=== PATIENT | female | born 1940 | race Caucasian/White ===

== ENCOUNTER → 2018-04-10 | Outpatient (CLI) | payer MEDICARE | END | disposition home or self-care (01) | LOC: US 08:34 | DX: R10.11 Right upper quadrant pain (principal) | CPT/HCPCS: 76705 ==

== ENCOUNTER → 2018-05-08 | Outpatient (CLI) | payer MEDICARE ==
[2018-05-08] MEDS: GADOBUTROL 10 MMOL/10 ML VIAL IV (13:28)
== END | disposition home or self-care (01) ==
LOC: KCIC MRI 12:08
DX: K76.89 Other specified diseases of liver (principal); Z79.01 Long term (current) use of anticoagulants
CPT/HCPCS: 74183; A9585

== ENCOUNTER → 2018-08-17 | Outpatient (CLI) | payer MEDICARE ==
[~2018-08-17] MED LIST: ASPI-630 PO; BARIUM SULFATE 60% 355 ML SUSP PO ONE; LEVO25TA55 PO
--- NOTE | 2018-08-17 13:24 | KCIC ---
SMALL BOWEL SERIES History: History of small bowel obstruction, right-sided abdominal pain for 4 months Comparison: None. Findings: Small bowel examination was performed. 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 There has been cholecystectomy. There is no evidence of bowel obstruction. Is normal transit of the small bowel, seen in the colon at about 60 minutes. The no significant abnormality was identified of the terminal ileum. The no definitive stricture was identified. There is retained stool in the right colon. Appendix is not confidently identified. Fluoroscopy time: 1 minute 47 seconds, 3 images Impression: 1. There is no evidence of small bowel obstruction. Appendix could not be visualized on this exam. Electronically signed by: Jass Iniguez MD (08/17/2018 1:20 PM) [email or web address]
== END | disposition home or self-care (01) ==
LOC: KCIC 08:29
PROVIDERS: ATTEND Internal Medicine Gastroenterology
DX: R10.84 Generalized abdominal pain (principal); Z88.0 Allergy status to penicillin
CPT/HCPCS: 74250

== ENCOUNTER → 2019-02-27 | Outpatient (CLI) | payer MEDICARE ==
[~2019-02-27] MED LIST changes: -BARIUM SULFATE 60% 355 ML SUSP PO ONE; +GADOBUTROL 7.5 MMOL/7.5 ML VIAL IV ONE
--- NOTE | 2019-02-27 16:11 | KCIC ---
MRI Brain with and without contrast History: Dizziness, 6th nerve palsy, new onset dizziness in recent weeks Technique: Multiplanar, multi sequential pre and postcontrast MR imaging was performed of the brain and orbits. Comparison: None Findings: There is no evidence of recent infarct or cytotoxic edema. The ventricles, sulci, and cisterns are within normal limits in size and configuration. There is no significant midline shift, intraaxial mass effect, or focal abnormal extra-axial fluid collection. There are a few small foci of T2 and FLAIR hyperintense signal of the supratentorial parenchyma greatest of the left frontal white matter. There is no nodular parenchymal or leptomeningeal enhancement. There is preservation of the major intracranial flow-voids at the skull base, more ectatic appearing left cavernous internal carotid artery comparing with the right. The cerebellar tonsils are normal in location. There is no significant abnormality of the pineal gland or pituitary gland. There is patchy mild bilateral ethmoid air cell mucosal thickening. There are ruma bullosa greater on the left. The mastoid air cells are aerated. There is nonspecific heterogeneity of the marrow of the nonexpanded clivus. No orbital mass is identified. Extraocular muscles are symmetric in appearance. There is no abnormal enhancement identified of the optic nerves. No asymmetric enhancement is identified of Meckel's caves or cavernous sinus on either side. Impression: 1. There is no abnormal intracranial enhancement or evidence of recent infarct. Minimal T2 and FLAIR hyperintense signal abnormality of the supratentorial parenchyma greatest of the left frontal lobe is nonspecific, more commonly due to chronic microvascular ischemic disease in a patient this age. 2. Suboptimally evaluated, there is likely ectatic left cavernous internal carotid artery. Electronically signed by: Jass Iniguez MD (02/27/2019 4:08 PM) [facility]-[email or web address]
== END | disposition home or self-care (01) ==
LOC: KCIC MRI 02-23 10:39
PROVIDERS: ATTEND Ophthalmology
DX: H49.22 Sixth [abducent] nerve palsy, left eye (principal); R42 Dizziness and giddiness
CPT/HCPCS: 70553; A9585

== ENCOUNTER → 2019-05-23 | Outpatient (CLI) | payer MEDICARE ==
[~2019-05-23] MED LIST changes: -GADOBUTROL 7.5 MMOL/7.5 ML VIAL IV ONE
--- NOTE | 2019-05-23 16:38 | KCIC ---
Limited abdomen ultrasound study of the right upper quadrant Clinical indications: Follow-up of liver nodule COMPARISON: April 10, 2018. FINDINGS: The gallbladder is surgically absent. The extra hepatic bile duct measures 2.2 mm in caliber which is normal. The liver measures 15.2 cm in length which is normal. There is a solid echogenic nodule of the posterior aspect of the liver adjacent to the IVC which measures 13 mm transversely and 14 mm longitudinally and 20 mm in AP dimension. Measurements on the previous study were 15 mm transversely and 14 mm longitudinally and 17 mm in AP dimension. Therefore, there has been no significant increase in size. No internal color Doppler flow is seen. This is consistent with a hemangioma of the liver. The length of the right kidney is 10.4 cm. no hydronephrosis or renal mass or perinephric fluid collection is seen on this side. The pancreas is homogeneous without focal enlargement. IMPRESSION: No significant change in size of hemangioma of the right lobe of the liver. Electronically signed by: Matthias Daly MD (05/23/2019 4:35 PM) [id number]
== END | disposition home or self-care (01) ==
LOC: KCIC US 08:34
PROVIDERS: ATTEND Family Medicine
DX: K76.89 Other specified diseases of liver (principal); D18.00 Hemangioma unspecified site
CPT/HCPCS: 76705

== ENCOUNTER → 2019-06-22 | Outpatient (CLI) | payer MEDICARE ==
--- NOTE | 2019-06-22 15:14 | KCIC ---
ANGIOGRAPHY BRAIN WO CONTRAST DATE: 06/22/2019 11:00 AM INDICATION: Diplopia. Abnormal MRI brain TECHNIQUE: Axial 3-D [id number] images of the intracranial vessels without contrast. 3D reformatted images were performed on a separate workstation and reviewed. Axial DWI and FLAIR imaging was also obtained. COMPARISON: MRI brain 02/27/2019. FINDINGS: Anterior Circulation: Mild fusiform enlargement of the left ICA cavernous segment measuring 6 mm in greatest diameter. The visualized distal internal carotid arteries are otherwise patent with no stenosis or aneurysm. The visualized anterior cerebral and middle cerebral arteries show no significant stenosis or aneurysm. Fenestrated anterior communicating artery. Posterior Circulation: The visualized vertebral arteries, basilar artery, and posterior cerebral arteries show no significant stenosis or aneurysm. No arterial venous malformation is seen. No acute infarct or hydrocephalus. MRA is not sensitive for aneurysms 4mm or less in size, for small arteriovenous malformations, or for the detection of dural fistulae. IMPRESSION: No intracranial stenosis, aneurysm or arteriovenous malformation. Mildly ectatic left ICA cavernous segment of doubtful clinical significance. Electronically signed by: Jass Max MD (06/22/2019 3:11 PM) [email or web address]
== END | disposition home or self-care (01) ==
LOC: KCIC MRI 10:30
PROVIDERS: ATTEND Neurological Surgery
DX: H53.2 Diplopia (principal); I77.89 Other specified disorders of arteries and arterioles
CPT/HCPCS: 70544

== ENCOUNTER → 2020-09-11 | Outpatient (CLI) | payer MEDICARE ==
--- NOTE | 2020-09-11 16:32 | KCIC ---
PROCEDURE: KNEE LEFT 3V STUDY DATE: 09/11/2020 CLINICAL INDICATION / HISTORY: Reason: GENERALIZED LT KNEE PAIN XS 3 WEEKS, TWISTED KNEE WHILE GOING DOWN STAIRS / Spl. Instructions: / History: . TECHNIQUE: AP, lateral, and tunnel views of the left knee. COMPARISON: None FINDINGS: Subtle undulant contour to the anterior surface of the medial femoral condyle on the lateral view is present and could represent a subtle impaction fracture. Otherwise the osseous structures are intact. The articular surfaces are otherwise smooth. The joint space is maintained. No intra-articular loose bodies. The alignment is within normal limits. Soft tissues show evidence of a small joint effusion. Otherwise, soft tissues are unremarkable. No radio-opaque foreign bodies are identified. IMPRESSION: Possible impaction fracture of the medial femoral condyle anteriorly with associated reactive joint effusion. Otherwise negative left knee x-rays. If indicated, further imaging evaluation with MRI could be considered. Electronically signed by: Elyssa Jolly MD (09/11/2020 4:29 PM) [id number]
== END ==
LOC: KCIC 15:37
PROVIDERS: ATTEND Family Medicine
DX: M25.462 Effusion, left knee (principal)
CPT/HCPCS: 73562

== ENCOUNTER → 2021-03-16 | Outpatient (CLI) | payer MEDICARE ==
--- NOTE | 2021-03-16 11:56 | KCIC ---
EXAM: Cervical spine, 3 views. HISTORY: Pain. COMPARISON: None. FINDINGS: 3 views of the cervical spine are obtained. There is slight reversal cervical lordosis. The re is degenerative endplate remodeling with disc space narrowing and osteophytosis primarily at C5-C6 , and to a lesser extent, C6-C7. There is multilevel facet arthropathy. There is calcification of the thyroid cartilage. IMPRESSION: 1. Degenerative change predominantly at C5-C6. 2. No acute osseous finding. Electronically signed by: Ruby Loza MD (03/16/2021 11:54 AM) [id number]
== END ==
LOC: KCIC 11:20
PROVIDERS: ATTEND Family Medicine
DX: M47.812 Spondylosis without myelopathy or radiculopathy, cervical region (principal)
CPT/HCPCS: 72040

== ENCOUNTER → 2021-04-23 | Outpatient (CLI) | payer MEDICARE ==
[~2021-04-23] MED LIST changes: +HYDR25CA75 PO; +IOHEXOL 300 MG/ML 100ML VIAL. IV ONE
--- NOTE | 2021-04-23 14:36 | KCIC ---
MRI of the brain without contrast 04/23/2021 Clinical History: Double vision involving the left eye.. 6th nerve palsy. Technique: Unenhanced T1-weighted sagittal and axial, T2-weighted axial and coronal and FLAIR, suscep tibility weighted and diffusion-weighted axial images of the brain were obtained. Findings: Comparison study is dated 02/27/2019. There is generalized parenchymal atrophy. Patchy and several small scattered areas of increased signa l intensity are seen within the periventricular and subcortical white matter of both cerebral hemisph eres on the FLAIR and T2-weighted images consistent with areas of very mild small vessel ischemic dis ease. No acute parenchymal abnormality is seen. No extra-axial fluid collection is noted. There is no MRI evidence of acute ischemia/infarction. The cavernous portion of the left internal carotid artery is noted to be ectatic and tortuous. This c ould impinge upon the left 6th cranial nerve within the left cavernous sinus. This finding is unchang ed. The orbits are within normal limits. Mild mucosal thickening is seen scattered throughout the paranasal sinuses. IMPRESSION: The cavernous portion of the left internal carotid artery is ectatic and tortuous. This c ould impinge upon the left 6th cranial nerve within the left cavernous sinus. This finding is unchang ed. No acute parenchymal abnormality is seen. Electronically signed by: Zi Do MD (04/23/2021 2:34 PM) [id number]
--- NOTE | 2021-04-23 16:32 | KCIC ---
EXAM: CTA HEAD DATE: 04/23/2021 1:22 PM INDICATION: 6th nerve palsy, previous abnormal MRI brain TECHNIQUE: 5 mm axial tomographic images were obtained through the head before contrast. CTA angiogra m was obtained after IV bolus administration of 100 cc of Omnipaque 300. Multiplanar reconstruction images to include MIP and 3-D reconstruction images are submitted. One or more of the following dos e reduction techniques were utilized: Automated exposure control (AEC), Adjustment of mA and/or kV ac cording to patient size, Use of iterative reconstruction technique such as ASiR, CT scan done accordi ng to ALARA and image gently/image wisely COMPARISON: MRA 06/22/2019. FINDINGS: Noncontrast CT: The brain parenchyma is normal in attenuation. No intra- or extra-axial mass or fluid collection. No hyperdense intracranial hemorrhage. The ventricles are normal in size and configuration without midli ne shift. There is normal ngo-white matter differentiation. The subarachnoid cisterns are patent. The visualized paranasal sinuses are well aerated. The mastoid air cells are clear. The visualized po rtions of the orbits are normal. No aggressive osseous lesion or fracture. CTA Head: Tortuous ectatic left ICA cavernous segment measuring up to 6 mm in diameter, unchanged fro m the prior. The visualized distal internal carotid arteries, anterior and middle cerebral arteries a re otherwise patent. The distal vertebral arteries, basilar artery, and posterior cerebral arteries a re patent and normal caliber. No aneurysm or arteriovenous malformation is seen. IMPRESSION: Unchanged tortuous ectatic left ICA cavernous segment. It is possible that this impinges on the left 6th cranial nerve in the cavernous sinus. Electronically signed by: Jass Max MD (04/23/2021 4:29 PM) [id number]
== END ==
LOC: KCIC MRI 12:28
PROVIDERS: ATTEND Nurse Practitioner Family
DX: H49.22 Sixth [abducent] nerve palsy, left eye (principal); R93.0 Abnormal findings on diagnostic imaging of skull and head, not elsewhere classified; I77.1 Stricture of artery
CPT/HCPCS: 70496; 70551; 82565; Q9967

== ENCOUNTER → 2021-08-19 | Outpatient (CLI) | payer MEDICARE ==
[~2021-08-19] MED LIST changes: +ACET325T9 PO; +ASCO500C PO; +CAL MAG D; +CALC-450 PO; +GARL400T2 PO; +GLUC-142 PO; -IOHEXOL 300 MG/ML 100ML VIAL. IV ONE; +MULT-245 PO; +NAPR-695 PO; +OMEG1CAP27 PO; +VIT1TABL32 PO; +VITA1TAB19 PO
--- NOTE | 2021-08-19 11:01 | PDOC1 ---
INITIAL PAIN CONSULT DATE OF SERVICE: DOS: DATE: 08/19/21 TIME: 10:53 CHIEF COMPLAINT: Chief Complaint: Neck and bilateral upper extremity pain HISTORY OF PRESENT ILLNESS: 81-year-old female presents with ear pain neck bilateral shoulders upper extremities left greater than right since February 2021 without any specific injury or accident that she is aware but woke up 1 day and the pain was there in the base the neck and shoulders radiated to the upper extremities, worse over the past several months radiating into the anterior deltoid biceps into the forearms as well as into the posterior triceps region patient reports is worse with repetitive motions lifting weightbearing reaching above her head with her hands and has been disturbing sleep about 3-4 times a night patient reports it gene rally does not affect her bowel or bladder control does not affect her ability to walk significantly but it is difficult at times when she is maneuvering and feels she is off balance when the pain is at its worst in the neck and shoulder as well as the upper extremities patient describes pain as sharp and stabbing throbbing shooting radiating the upper extremities again worse on the left than the right but present bilaterally change during the day with activity more repetitive motions or weightbearing makes it worse is aching burning and primarily noticeable towards the end of the day or in the evening and again disturbing her sleep. Patient did have an MRI scan of the cervical spine showing central spinal stenosis and at C5-6 severe degenerative foraminal stenosis at C6-7 and at least moderate bilateral foraminal stenosis at C5-6. Patient rates her disability rating 0-10 10 me the worst is a 9 with family home responsibilities social activity occupation self-care life support activities specially sleeping in a 10 with recreational activities. Patient has been taking naproxen over the past few days which helps the pain by about 50% patient has had physical therapy still doing the strengthening and stretching exercises with this also chiropractic treatment which is ongoing which she feels both have been helpful but not to the level she would like. However the naproxen is decreasing the pain better than anything she has tried so far. PAST MEDICAL HISTORY: PMH: Hypertension, arthritis, cigarette smoking quit many years ago PREVIOUS SURGERIES: Past Surgical Hx: Cholecystectomy, tonsillectomy CURRENT MEDICATIONS: Current Meds: Active Scripts Medications Dose Route/Sig Max Daily Dose Days Date Category Dose Instructions Garlic X (Garlic) 400 Mg Tablet 400 Mg PO DAILY 08/19/21 Reported Osteo Bi-Flex Tablet (Glucosamine/D3/Boswellia Ruthann) 1 Each Tablet 2 Each PO DAILY 08/19/21 Reported Fish Oil 1,000 Mg Softgel (Morven-3 Fatty Acids/Fish Oil) 1 Each Capsule 2 Cap PO TID 30 08/19/21 Reported WITH MEALS B Complex (Vitamin B Complex) 1 Each Tablet 1 Tab PO DAILY 30 08/19/21 Reported Vitamin C (Ascorbic Acid) 500 Mg Capsule.er 1 Cap PO DAILY 30 08/19/21 Reported Caltrate 600 + D Soft Chew Tab (Calcium Carbonate/Vitamin D3) 1 Each Tab.chew 1 Each PO DAILY 08/19/21 Reported Ocuvite Tablet (Vit A,C & E/Lutein/Minerals) 1 Each Tablet 1 Tab PO DAILY 30 08/19/21 Reported Multi Vitamin Daily (Multivitamin) 1 Each Tablet 1 Tab PO DAILY 30 08/19/21 Reported [martha-mag-d] 1 Tsp 08/19/21 Reported Tylenol (Acetaminophen) 325 Mg Tablet 1 Tab PO PRN Q4HRS PRN 08/19/21 Reported Naproxen 375 Mg Tablet 1 Tab PO BID 30 08/19/21 Reported with food Hydroxyzine Pamoate 25 Mg Capsule 1 Cap PO BID 04/23/21 Reported Aspirin 81 Mg Tab.chew Unknown Dose PO 05/08/18 Reported Synthroid (Levothyroxine Sodium) 25 Mcg Tablet Unknown Dose PO DAILYAC 05/08/18 Reported ALLERGIES; Allergies: Coded Allergies: Penicillins (Verified Allergy, Intermediate, 05/08/18) FAMILY HISTORY: Family Hx: Arthritis in patient's sister SOCIAL HISTORY: Social Hx: Patient is under alcohol does not smoke she quit many years ago, does not use any illegal illicit recreational drugs is single lives locally in [facility] REVIEW OF SYSTEMS: ROS: Positive for those items mentioned in history of present illness, all systems are reviewed, otherwise negative ,and are complete full and well-documented on patient's chart. PHYSICAL EXAM: VS: Blood pressure is 156/75 pulse 71 respirations 18 temperature 98.1 F height 5 feet 6 inches weight is 148 pounds PE: PHYSICAL EXAMINATION: GENERAL: The patient is awake, alert, oriented, appropriate, very pleasant in demeanor. HEENT: Shows normocephalic, atraumatic. Extraocular movements are intact and symmetrical. Oral cavity: Mucous membranes moist and pink. Dentition is intact. NECK: Shows anterior throat supple without palpable lymphadenopathy noted. Swallow reflex symmetrical. CHEST: Shows normal on inspection. Breath sounds are clear bilaterally, no rales rhonchi or wheeze auscultated. HEART: Shows S1, S2 clear. No murmurs auscultated. ABDOMEN: Soft, nontender, nondistended. No palpable organomegaly is noted. No rebound or guarding demonstrated. BACK: Shows spine grossly in the midline. Normal-appearing cervical lordotic curvature. Cervical paraspinous muscles show symmetrical with inspection, on palpation some mild tenderness diffusely throughout the upper middle lobe decrease the paraspinous musculature somewhat more on the left than the right but present bilaterally also some tenderness in the superior medial trapezius more on the left than the right as well but without trigger points without radiation. Patient has full rotation motion cervical spine both laterally as well as full extension full forward flexion without significant increase in pain. There is slightly increased thoracic kyphosis, some minor flattening of the lumbar lordotic curvature. EXTREMITIES: Upper extremities show deep tendon reflexes 2+ in the biceps and triceps tendons. Motor exam is 5 on a scale of 5 with right polarity tester, biceps and triceps flexion and 4/5 on the left. Peripheral pulses are 1+ radial. No peripheral edema is noted bilaterally. Upper extremities are warm and dry to touch, equal in color and appearance. Shoulder shrug is strong and intact without loss of strength on resistance as is abduction of the shoulder at 90 degrees without loss of strength on resistance bilaterally. SKIN: Shows warm and dry, good turgor. No edema. No sores, rashes or bruising throughout. IMPRESSION: Impression: 81-year-old female with proximate 5-month history pain base the neck and bilateral upper extremities left greater than right in a radicular fashion. MRI scan cervical spine as noted Hypertension Arthritis Plan: Options were discussed with the patient including conservative medical management continued physical therapies interventional techniques. Patient would like to pursue most conservative course at this time we will continue with physical therapy is also naproxen has been helping significantly and she will continue with this as well. If symptoms are not improved long-term and or con ditions worsen patient will return as we did discuss potential cervical epidural steroid injection using descriptions as well as anatomical models, in the future. ALBERTO ARRIOLA MD Aug 19, 2021 11:01
== END | disposition home or self-care (01) ==
LOC: PNCL 09:04
PROVIDERS: ATTEND Anesthesiology
DX: M54.2 Cervicalgia (principal); M79.602 Pain in left arm; M79.601 Pain in right arm; I10 Essential (primary) hypertension; M19.90 Unspecified osteoarthritis, unspecified site; Z87.891 Personal history of nicotine dependence; Z90.49 Acquired absence of other specified parts of digestive tract; Z98.890 Other specified postprocedural states; Z79.82 Long term (current) use of aspirin; Z79.899 Other long term (current) drug therapy; Z88.0 Allergy status to penicillin
CPT/HCPCS: G0463

== ENCOUNTER → 2021-10-20 | Outpatient (CLI) | payer MEDICARE ==
[~2021-10-20] MED LIST changes: +HYDR12.575 PO; +MECL12.582 PO; +ONDA4TAB12 PO
--- NOTE | 2021-10-20 15:20 | PDOC ---
Progress Note - Pain Clinic Date of Service: DOS: DATE: 10/20/21 TIME: 15:17 Diagnosis: Dx: Cervical radiculopathy with cervical degenerative disease and cervical spinal stenosis History or Present Illness: HPI: 81-year-old female returns in follow-up status post initial evaluation August 19 and patient had requested doing massage and physical therapy however has not had the physical therapy done she is just been doing stretching on her own and has had a massage or 2 which was helpful but only temporarily patient reports still significant pain in the base the neck and shoulders radiating the upper extremities left slightly worse than right but present bilaterally. Patient reports he is having complaint of double vision over the past several weeks and is uncertain what the cause of this is she is still waiting to see her engine room helper. Patient reports the therapy exercises she has been doing at home have been helpful but not decreasing the pain significantly patient reports again some headaches that come and go and base the neck pain and shoulders rating to the upper extremities again worse on the left than the right and into the upper back described as aching and tingling but on and off in intensity patient reports is generally better with sitting or laying down does not awaken her from sleep most nights no motor deficits in the upper extremities as well but some fatigability especially on the left arm with repetitive motions and reaching and weightbearing activities. Physical Exam: VS: Blood pressure is 118/71 pulse 66 respirations are 18 temperature is 98.7 F weight is 140 pounds PE: PHYSICAL EXAMINATION: GENERAL: The patient is awake, alert, oriented, appropriate, very pleasant in demeanor HEENT: Shows normocephalic, atraumatic. Extraocular movements are intact and symmetrical, no nystagmus pupils are equal round and reactive to light and accommodation. Oral cavity: Mucous membranes moist and pink. Dentition is intact. NECK: Shows anterior throat supple without palpable lymphadenopathy noted. Swallow reflex symmetrical. CHEST: Shows normal on inspection. Breath sounds are clear bilaterally, no rales or rhonchi. HEART: Shows S1, S2 clear. No murmurs auscultated. ABDOMEN: Soft, nontender, nondistended. No palpable organomegaly is noted. BACK: Shows spine grossly in the midline. Normal-appearing cervical lordotic curvature. There is slightly increased thoracic kyphosis, some minor flattening of the lumbar lordotic curvature. EXTREMITIES: Upper extremities show deep tendon reflexes 2+ in the patellar and tendo calcaneus tendons. Motor exam is 5 on a scale of 5 with right dorsifle xion, extension, quadriceps and hamstring flexion and 4/5 on the left. Peripheral pulses are [] posterior tibial. [] peripheral edema is noted bilaterally. Upper extremities are warm and dry to touch, equal in color and appearance. SKIN: Shows warm and dry, good turgor. No edema. No sores, rashes or bruising throughout. Procedure: Procedure: Options were discussed with the patient. Patient chart reviewed with her current medication regimen updated current review of systems updated today as well. We will order formal physical therapy with traction for the patient as well as stretching strength exercises and deep tissue massage therapy. If not significantly improved patient will return to the clinic and we did discuss potential interventional techniques at that time. Patient to follow-up with her engine room helper as well regarding recent double vision. Medication Injected: Med Injected: None Condition at Discharge: Condition at Discharge: Condition at discharge is stable ALBERTO ARRIOLA MD Oct 20, 2021 15:20
== END | disposition home or self-care (01) ==
LOC: PNCL 14:31
PROVIDERS: ATTEND Anesthesiology
DX: M50.10 Cervical disc disorder with radiculopathy, unspecified cervical region (principal); M48.02 Spinal stenosis, cervical region; Z79.899 Other long term (current) drug therapy; Z88.0 Allergy status to penicillin
CPT/HCPCS: 99212; G0463

== ENCOUNTER 2021-10-22 12:02 | Emergency (ER) | payer MEDICARE ==
[~2021-10-22] VITALS: Ht 167.6 cm; Wt 62.5 kg
[~2021-10-22 12:02] MED LIST changes: -MECL12.582 PO; -ONDA4TAB12 PO
[2021-10-22] MEDS ORDERED: IV NORMAL SALINE 1000ML BAG 1,000 ML IV ONE ×2 (12:30→14:15)
[2021-10-22] MEDS ORDERED: ONDANSETRON PF 4 MG/2 ML VIAL. IVP ONE (12:30)
[2021-10-22] MEDS ORDERED: ONDANSETRON PF 4 MG/2 ML VIAL. ONE (12:34)
[2021-10-22] MEDS ORDERED: LABETALOL 20 MG/4 ML DISP.SYRIN. IVP ONE (12:45)
[2021-10-22 12:49] LABS: BASO % 0 % (0-3); EOS % 0 % (0-3); HEMATOCRIT 39.6 % (36.0-47.0); LYMPH # 0.8 x10^3/uL (1.0-4.8); LYMPH % 9 % (24-48); MEAN CORPUSCULAR HEMOGLOBIN 27 pg (25-35); MEAN CORPUSCULAR HGB CONC 33 g/dL (31-37); MEAN CORPUSCULAR VOLUME 83 fL (79-100); MONO # 0.4 x10^3/uL (0.0-1.1); MONO % 4 % (0-9); NEUT # 8.3 x10^3/uL (1.8-7.7); NEUT % 87 % (31-73); PLATELET COUNT 374 x10^3/uL (140-400); RED BLOOD COUNT 4.75 x10^6/uL (3.50-5.40); RED CELL DISTRIBUTION WIDTH 13.4 % (11.5-14.5); WHITE BLOOD COUNT 9.5 x10^3/uL (4.0-11.0)
[2021-10-22 12:57] LABS: CALCIUM 9.3 mg/dL (8.5-10.1); CREATININE 0.9 mg/dL (0.6-1.0); GFR 60.4; POTASSIUM 3.9 mmol/L (3.5-5.1)
[2021-10-22] MEDS ORDERED: METOCLOPRAMIDE HCL 10 MG/2 ML VIAL. IVP ONE (13:00)
[2021-10-22 13:04] LABS: ALBUMIN 3.6 g/dL (3.4-5.0); ALBUMIN/GLOBULIN RATIO 0.8 (1.0-1.7); MAGNESIUM 1.9 mg/dL (1.8-2.4); PROTHROMBIN TIME PATIENT 13.4 SEC (11.7-14.0); TOTAL BILIRUBIN 0.4 mg/dL (0.2-1.0); TOTAL PROTEIN 8.3 g/dL (6.4-8.2)
--- NOTE | 2021-10-22 13:06 | RAD ---
PQRS Compliance Statement: One or more of the following individualized dose reduction techniques were utilized for this examinat ion: 1. Automated exposure control 2. Adjustment of the mA and/or kV according to patient size 3. Use of iterative reconstruction technique CT head without contrast 10/22/2021 12:45 PM INDICATION: Dizziness, double vision COMPARISON: MRI brain 04/23/2021 TECHNIQUE: Multiple axial CT images of the head were obtained from skull base through the vertex with out intravenous contrast. FINDINGS: Head: Ventricles, sulci and basal cisterns are within normal limits. There is no hydrocephalus. Taveras-white matter differentiation is normal. There is no acute intracranial hemorrhage. There is no mass, mass e ffect or midline shift. Posterior fossa is normal in appearance. Visualized portions of the orbits are normal. Paranasal sinuses are well aerated. Mastoid air cells a re well aerated. Scalp and calvaria are normal. IMPRESSION: No acute intracranial hemorrhage. Electronically signed by: Indigo Fernandez MD (10/22/2021 1:04 PM) [id number]
--- NOTE | 2021-10-22 13:16 | PHYS DOC ---
Past Medical History Past Medical History: Hypertension, Hypothyroid Additional Past Medical Histor: pinched nerve in neck Past Surgical History: Cholecystectomy, Tonsillectomy Smoking Status: Never Smoker Alcohol Use: None General Adult EDM: Chief Complaint: MULTIPLE COMPLAINTS HPI: HPI: Patient is a 81 year old female with history of hypertension, hypothyroidism, pinched nerve to the neck, who presents to the ED today complaining of nausea and vomiting, dizziness, unsteady gait, sensation of spinning, sweating, symptoms have been going on since 7:30 in the morning. Patient is also compla ining of double vision which has been going on since Tuesday though she states this double vision is has been going on since January, she states she has been seen by a neurologist. She states they did an MRI of her brain a couple months ago which was negative for any acute findings. Denies any headache. Denies any chest pain or shortness of breath. Review of Systems: Review of Systems: Constitutional: Denies fever or chills. [] Eyes: Denies change in visual acuity. [] HENT: Denies nasal congestion or sore throat. [] Respiratory: Denies cough or shortness of breath. [] Cardiovascular: Denies chest pain or edema. [] GI: Reports nausea and vomiting. Denies abdominal pain, bloody stools or diarrhea. [] : Denies dysuria. [] Musculoskeletal: Denies back pain or joint pain. [] Integument: Denies rash. [] Neurologic: Reports sensation of spinning, dizziness, denies headache, focal weakness or sensory changes. [] [] Psychiatric: Denies depression or anxiety. [] Heart Score: C/O Chest Pain: N/A Risk Factors: Risk Factors: DM, Current or recent (<one month) smoker, HTN, HLP, family history of CAD, obesity. Risk Scores: Score 0 - 3: 2.5% MACE over next 6 weeks - Discharge Home Score 4 - 6: 20.3% MACE over next 6 weeks - Admit for Clinical Observation Score 7 - 10: 72.7% MACE over next 6 weeks - Early Invasive Strategies Current Medications: Current Medications Medications (Trade) Dose Ordered Sig/Lilli Start Time Stop Time Status Last Admin Dose Admin Labetalol HCl (Normodyne Iv Push) 10 mg 1X ONCE 10/22/21 12:45 10/22/21 12:46 DC 10/22/21 13:06 10 MG Metoclopramide HCl (Reglan Vial) 10 mg 1X ONCE 10/22/21 13:00 10/22/21 13:01 UNV 10/22/21 13:05 10 MG Ondansetron HCl (Zofran) 4 mg STK-MED ONCE 10/22/21 12:34 10/22/21 12:34 DC Sodium Chloride 1,000 ml @ 1,000 mls/hr 1X ONCE 10/22/21 12:30 10/22/21 13:29 10/22/21 12:36 1,000 MLS/HR Allergies: Allergies: Allergies Coded Allergies Type Severity Reaction Last Updated Verified Penicillins Allergy Intermediate 05/08/18 Yes Physical Exam: PE: Constitutional: Well developed, well nourished, no acute distress, non-toxic appearance. [] HENT: Normocephalic, atraumatic, bilateral external ears normal, oropharynx moist, no oral exudates, nose normal. [] Eyes: PERRLA, EOMI, conjunctiva normal, no discharge. [] Neck: Normal range of motion, no tenderness, supple, no stridor. [] Cardiovascular:Heart rate regular rhythm, no murmur [] Lungs & Thorax: Bilateral breath sounds clear to auscultation [] Abdomen: Patient is actively vomiting in the ED. Bowel sounds normal, soft, no tenderness, no masses, no pulsatile masses. [] Skin: Warm, dry, no erythema, no rash. [] Back: No tenderness, no CVA tenderness. [] Extremities: No tenderness, no cyanosis, no clubbing, ROM intact, no edema. [] Neurologic: Alert and oriented X 3, normal motor function, normal sensory function, no focal deficits noted. Cranial nerves II through XII intact Psychologic: Affect normal, judgement normal, mood normal. [] Current Patient Data: Labs: Laboratory Tests Test 10/22/21 12:25 10/22/21 13:00 White Blood Count 9.5 x10^3/uL (4.0-11.0) Red Blood Count 4.75 x10^6/uL (3.50-5.40) Hemoglobin 13.0 g/dL (12.0-15.5) Hematocrit 39.6 % (36.0-47.0) Mean Corpuscular Volume 83 fL (79-100) Mean Corpuscular Hemoglobin 27 pg (25-35) Mean Corpuscular Hemoglobin Concent 33 g/dL (31-37) Red Cell Distribution Width 13.4 % (11.5-14.5) Platelet Count 374 x10^3/uL (140-400) Neutrophils (%) (Auto) 87 % (31-73) H Lymphocytes (%) (Auto) 9 % (24-48) L Monocytes (%) (Auto) 4 % (0-9) Eosinophils (%) (Auto) 0 % (0-3) Basophils (%) (Auto) 0 % (0-3) Neutrophils # (Auto) 8.3 x10^3/uL (1.8-7.7) H Lymphocytes # (Auto) 0.8 x10^3/uL (1.0-4.8) L Monocytes # (Auto) 0.4 x10^3/uL (0.0-1.1) Eosinophils # (Auto) 0.0 x10^3/uL (0.0-0.7) Basophils # (Auto) 0.0 x10^3/uL (0.0-0.2) Sodium Level 135 mmol/L (136-145) L Potassium Level 3.9 mmol/L (3.5-5.1) Chloride Level 95 mmol/L (98-107) L Carbon Dioxide Level 34 mmol/L (21-32) H Anion Gap 6 (6-14) Blood Urea Nitrogen 13 mg/dL (7-20) Creatinine 0.9 mg/dL (0.6-1.0) Estimated GFR (Cockcroft-Gault) 60.4 BUN/Creatinine Ratio 14 (6-20) Glucose Level 136 mg/dL (70-99) H Calcium Level 9.3 mg/dL (8.5-10.1) Magnesium Level 1.9 mg/dL (1.8-2.4) Total Bilirubin 0.4 mg/dL (0.2-1.0) Aspartate Amino Transferase (AST) 26 U/L (15-37) Alanine Aminotransferase (ALT) 24 U/L (14-59) Alkaline Phosphatase 166 U/L (46-116) H Total Protein 8.3 g/dL (6.4-8.2) H Albumin 3.6 g/dL (3.4-5.0) Albumin/Globulin Ratio 0.8 (1.0-1.7) L Lipase 243 U/L (73-393) Glucose (Fingerstick) 122 mg/dL (70-99) H Laboratory Tests 10/22/21 12:25 Laboratory Tests 10/22/21 12:25 Vital Signs: Vital Signs Date Time Temp Pulse Resp B/P (MAP) Pulse Ox O2 Delivery O2 Flow Rate FiO2 10/22/21 13:06 84 195/88 10/22/21 12:19 97.4 20 98 Room Air 97.4 EKG: EK interpreted by Dr. Short sinus rhythm heart rate 85 no STEMI [] Radiology/Procedures: Radiology/Procedures: []PROCEDURE: CT HEAD WO CONTRAST PQRS Compliance Statement: One or more of the following individualized dose reduction techniques were utilized for this examination: 1. Automated exposure control 2. Adjustment of the mA and/or kV according to patient size 3. Use of iterative reconstruction technique CT head without contrast 10/22/2021 12:45 PM INDICATION: Dizziness, double vision COMPARISON: MRI brain 04/23/2021 TECHNIQUE: Multiple axial CT images of the head were obtained from skull base through the vertex without intravenous contrast. FINDINGS: Head: Ventricles, sulci and basal cisterns are within normal limits. There is no hydrocephalus. Taveras-white matter differentiation is normal. There is no acute intracranial hemorrhage. There is no mass, mass effect or midline shift. Posterior fossa is normal in appearance. Visualized portions of the orbits are normal. Paranasal sinuses are well aerated. Mastoid air cells are well aerated. Scalp and calvaria are normal. IMPRESSION: No acute intracranial hemorrhage. Electronically signed by: Bj Sanabria MD (10/22/2021 1:04 PM) [id number] DICTATED and SIGNED BY: BJ SANABRIA MD DATE: 10/22/21 [id number] 0 Course & Med Decision Making: Course & Med Decision Making Pertinent Labs and Imaging studies reviewed. (See chart for details) This is a 81-year-old female patient presenting to the ED today with multiple complaints including nausea and vomiting, dizziness, unsteady gait, sweating, spinning sensation, symptoms of been going on since 7:30 in the morning. Also complaining of double vision since Tuesday but states the double vision has been going on since January. CT of the head is negative, NIHSS is negative. Labs are negative for any acute findings, acute abdominal series is negative. Patient is beginning IV fluids, Zofran, labetalol for her blood pressure which was 215/88 with HR of 92 Patient was also given meclizine Patient sitting up in bed. She states she is not feeling any better. Spoke with Dr. Lama who accepted patient for admission, spoke with Dr. Castellanos neurologist who will follow-up with patient though he stated the patient feels better she can go home [id number] patient states she is feeling better right now. She is requesting to go home. She was discharged with instructions to follow-up with her own PCP and neurologist next week Boy Disclaimer: Boy Disclaimer: This electronic medical record was generated, in whole or in part, using a voice recognition dictation system. NIHSS Stroke Scale NIH Stroke Scale: NIH Stroke Scale Response (Comments) Value Level of Consciousness: 0 Alert/Responsive 0 LOC Questions: 0 Answers both correctly 0 LOC Commands: 0 Performs both tasks 0 Best Gaze: 0 Normal 0 Visual: 0 No visual loss 0 Facial Palsy: 0 Normal, symmetrical 0 Motor - Left Arm 0 No drift 0 Motor - Right Arm 0 No drift 0 Motor - Left Leg 0 No drift 0 Motor: Right Leg 0 No drift 0 Limb Ataxia: 0 Absent 0 Sensory: 0 No loss 0 Best Language: 0 Normal 0 Dysathria: 0 Normal 0 Extinction and Inattention: 0 Normal 0 Total 0 Departure Departure Impression: Primary Impression: Dizziness Additional Impressions: Nausea & vomiting Qualified Codes: R11.2 - Nausea with vomiting, unspecified Double vision with both eyes open Accelerated hypertension Disposition: HOME / SELF CARE / HOMELESS Condition: STABLE Referrals: LOU FRANKEL MD (PCP) Follow-up with your nueurologist and primary care doctor next week Patient Instructions: Dizziness, [id number], Hypertension, Nausea and Vomiting, [id number] Additional Instructions: You were evaluated in the emergency room. Your work-up was negative for any acute findings. Please take the prescribed medication for dizziness as needed as well as nausea medicine as needed. Change positions slowly. Follow-up with your neurologist and primary care doctor next week. Come back to the ED at any point symptoms worsen . Scripts Ondansetron (ONDANSETRON ODT) 4 Mg Tab.rapdis 1 TAB PO PRN Q6-8HRS, #16 TAB Prov: ROBIN LOPEZ APRN 10/22/21 Meclizine Hcl (MECLIZINE HCL) 12.5 Mg Tablet 1 TAB PO TID, #21 TAB 0 Refills Prov: ROBIN LOPEZ APRN 10/22/21 ROBIN LOPEZ APRN Oct 22, 2021 13:16
--- NOTE | 2021-10-22 13:23 | RAD ---
EXAM: 2 VIEW ABDOMEN WITH ONE VIEW CHEST. HISTORY: Abdominal pain and dizziness. COMPARISON: None. FINDINGS: A frontal view of the chest and supine/upright views of the abdomen are obtained. There are no confluent infiltrates. There is no pneumothorax or pleural effusion. The heart is not en larged. There are atherosclerotic calcifications of the aorta. There is no pneumoperitoneum. There are no distended small bowel loops or significant air-fluid level s. There is gas distally. IMPRESSION: 1. No confluent infiltrates. 2. No evidence of obstruction. Electronically signed by: Chastity Bridges MD (10/22/2021 1:20 PM) [id number]
[2021-10-22] MEDS ORDERED: LABETALOL 20 MG/4 ML DISP.SYRIN. IVP PRN (14:15)
[2021-10-22] MEDS ORDERED: ONDANSETRON PF 4 MG/2 ML VIAL. IVP PRN (14:15)
[2021-10-22] MEDS ORDERED: ACETAMINOPHEN 325 MG TABLET. PO PRN (14:15)
[2021-10-22] MEDS ORDERED: MORPHINE SULFATE 2 MG/ML INJ. IVP PRN (14:15)
[2021-10-22] MEDS ORDERED: MECLIZINE HCL 12.5 MG TABLET. PO PRN (14:15)
[2021-10-22 14:30] VITALS: BP 173/74
[2021-10-22] MEDS ORDERED: MECLIZINE HCL 12.5 MG TABLET. PO ONE (14:30)
[2021-10-22] MEDS ORDERED: MECL12.582 PO (14:58)
[2021-10-22] MEDS ORDERED: ONDA4TAB12 PO (14:58)
[2021-10-22 15:30] LABS: BILIRUBIN,URINE NEGATIVE (NEG); CLARITY,URINE CLOUDY; COLOR,URINE YELLOW; NITRITE,URINE NEGATIVE (NEG); PH,URINE 7.5 (<5.0-8.0); PROTEIN,URINE NEGATIVE (NEG-TRACE); UROBILINOGEN,URINE 0.2 mg/dL (0.2 mg/dL)
[2021-10-22 15:31] LABS: BARBITURATES NEG (NEG); BENZODIAZEPINES NEG (NEG); CANNABINOIDS NEG (NEG); COCAINE NEG (NEG); METHADONE NEG (NEG); OPIATES NEG (NEG); PHENCYCLIDINE NEG (NEG)
[2021-10-22 15:45] LABS: AMORPHOUS SEDIMENT,UR PRESENT /HPF; BACTERIA,URINE 0 /HPF (0-FEW); GRANULAR CASTS,URINE OCCASIONAL /HPF
[2021-10-22 15:55] LABS: AMPHETAMINE/METHAMPHETAMINE NEG (NEG)
--- NOTE | 2021-10-23 06:44 | EKG ---
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
--- NOTE | 2021-10-23 16:50 | NUR ---
IP: Attempted to contact pt concerning covid results. No answer, left a voicemail to return the call.
--- NOTE | 2021-10-26 10:34 | NUR ---
IP: Pt returned call today. Informed her of the negative covid test. Pt verbalized understanding.
== END 2021-10-22 15:15 | disposition home or self-care (01) ==
LOC: ER 12:02 → ED HOLD 14:17 → UNDOADMIN 14:17 → ER 15:15
DX: I10 Essential (primary) hypertension (principal); H53.2 Diplopia; R11.2 Nausea with vomiting, unspecified; R42 Dizziness and giddiness; E03.9 Hypothyroidism, unspecified; Z20.822 Contact with and (suspected) exposure to COVID-19; Z88.0 Allergy status to penicillin
CPT/HCPCS: 36415; 70450; 74022; 80053; 80307; 81001; 82962; 83690; 83735; 83880; 84443; 84484; 85025; 85610; 85730; 87426; 93005; 96361; 96374; 96375; 99285; J2405; J2765; J3490; J7030; J8597; U0003; U0005

== ENCOUNTER → 2022-03-22 | Outpatient (CLI) | payer MEDICARE ==
[~2022-03-22] MED LIST changes: +HYDR25TA PO; +MECL12.582 PO; +ONDA4TAB12 PO
--- NOTE | 2022-03-22 17:08 | PDOC ---
Progress Note - Pain Clinic Date of Service: DOS: DATE: 03/22/22 TIME: 17:04 Diagnosis: Dx: Cervical radiculopathy with cervical degenerative disease and cervical spinal stenosis History or Present Illness: HPI: 41-year-old female returns for follow-up status post evaluation last seen July 2021. Patient reports that she was doing well with taking naproxen 375 mg twice daily but the pain base the neck and shoulders and upper extremities but the pain is now returning fairly significantly where is waking up at least once or twice a night patient reports tingling and burning aching in the base the neck and shoulders upper extremities bilaterally slightly more on the left than the right but present bilaterally as a tight sensation in the neck tingling and burning in the arms and hands more noticeable with repetitive motions weightbearing and weightlifting she did do some physical therapy which she felt was not significantly helpful was doing doing the exercises on her own at home more recently. Patient reports she is taking chiropractic treatments once a week Which she feels is helpful but temporary as well. Patient reports again is waking her from sleep at night rates her pain as a 3 on scale 10 at all times worst least and average is a 3 today. Patient reports no loss of motor function with significant fatigability of the upper extremities left greater than right to some extent. Physical Exam: VS: Blood pressure is 134/87 pulse 67 respirations 18 temperature is 98.5 F height is 5 foot 6 and half inches weight is 136 pounds. PE: PHYSICAL EXAMINATION: GENERAL: The patient is awake, alert, oriented, appropriate, very pleasant in demeanor HEENT: Shows normocephalic, atraumatic. Extraocular movements are intact and symmetrical. Oral cavity: Mucous membranes moist and pink. Dentition is intact. NECK: Shows anterior throat supple without palpable lymphadenopathy noted. Swallow reflex symmetrical. CHEST: Shows normal on inspection. Breath sounds are clear bilaterally, no rales rhonchi or wheezes auscultated. HEART: Shows S1, S2 clear. No murmurs auscultated. ABDOMEN: Soft, nontender, nondistended. No palpable organomegaly is noted. BACK: Shows spine grossly in the midline. Normal-appearing cervical lordotic curvature. Cervical paraspinous muscles show symmetrical inspection, on palpation some moderate tenderness diffusely in the inferior aspect cervical paraspinous musculature and at the superior medial trapezius more on the left than the right without asymmetry or atrophy hypertrophy no trigger points. Patient shows good rotation of the cervical spine both laterally as well as extension flexion without significant pain reported. There is slightly increased thoracic kyphosis, some minor flattening of the lumbar lordotic curvature. EXTREMITIES: Upper extremities show deep tendon reflexes 2+ in the biceps and triceps tendons. 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 Peripheral pulses are 2+ radial. No peripheral edema is noted bilaterally. Upper extremities are warm and dry to touch, equal in color and appearance. SKIN: Shows warm and dry, good turgor. No edema. No sores, rashes or bruising throughout. Procedure: Procedure: Options were discussed with the patient. Patient's old chart was reviewed as her current medication regimen updated current review of systems updated today as well. Patient would like to consider her options further and we did discuss potential interventional techniques as opposed to continued physical therapy as well as chiropractic treatments and medication management. Patient continue with her naproxen at this time and would like to return on as-needed basis. Medication Injected: Med Injected: None Condition at Discharge: Condition at Discharge: Condition at discharge is stable. ALBERTO ARRIOLA MD Mar 22, 2022 17:08
== END | disposition home or self-care (01) ==
LOC: PNCL 15:24
PROVIDERS: ATTEND Anesthesiology
DX: M50.10 Cervical disc disorder with radiculopathy, unspecified cervical region (principal); M48.02 Spinal stenosis, cervical region; Z79.899 Other long term (current) drug therapy; Z88.0 Allergy status to penicillin
CPT/HCPCS: 99212; G0463